=== PATIENT | female | born 1950 | race Caucasian/White ===

== ENCOUNTER → 2017-04-15 | Outpatient (CLI) | payer MEDICARE, OTHER ==
--- NOTE | 2017-04-15 11:58 | Diagnostic Imaging Report ---
Examination: DEXA scan. Indication: osteopenia Technique: Bone mineral density estimated based on dual energy radiography over the lumbar spine and femoral necks, was performed. Findings: The lumbar spine T-score is -3. This is 5% decreased density measurements compared to 03/26/2016. T score over the left femoral neck is -1.6 and on the right is -1.5. The 2% decreased density measurements compared to 03/26/16. IMPRESSION: Osteoporosis.. Dictated by: Dictated on workstation # [id number]
== END ==
LOC: RAD 08:34
PROVIDERS: ATTEND Nurse Practitioner Family
DX: Z12.31 Encounter for screening mammogram for malignant neoplasm of breast; M81.0 Age-related osteoporosis without current pathological fracture
CPT/HCPCS: 77080

== ENCOUNTER → 2018-08-17 | Outpatient (CLI) | payer MEDICARE, OTHER ==
[~2018-08-17] MED LIST: ATOR10TA66 PO; CALC-250 PO; CNC1KV IM; ESCI10TA55 PO; IBAN150T8 PO; TURM538C PO
--- NOTE | 2018-08-17 20:22 | HISTORY AND PHYSICAL ---
DATE OF SERVICE: COLONOSCOPY H AND P HISTORY OF PRESENT ILLNESS: The patient is a 68-year-old white female referred by Dr. Salas for screening colonoscopy and diagnostic EGD. The patient is deemed to be of higher than average risk as there is a family history for familial polyposis. She did have genetic studies done and was negative and there is a strong family history for colon cancer. Brother at the age of 49 with colon cancer, father succumbed to colon cancer at the age of 46. She has one sister who has had a colectomy due to polyposis and has a history of adenomatous duodenal polyps, but requiring frequent screening. She has one other sibling with no history of polyps. Her last colonoscopy was in 2009, at which time she does not believe any colonic polyps were removed. For the past 6 months, she has noted dysphagia predominantly to solids. It has been intermittent. She states at one point she did have issues with reflux, but has not been aware of any significant heartburn symptoms over the past 6 months. She denies weight loss, melena or bright red blood per rectum. She denies problems with night sweats. PAST SURGICAL HISTORY: Significant for lumpectomy on the right in 1996 for breast cancer. She has had a past D and C for benign reasons. PAST MEDICAL HISTORY: Breast cancer diagnosed in 1995. She has had a subsequent lymph node removal, did not reveal any evidence for cancer. She has a history of hyperlipidemia, for which she takes atorvastatin, osteoporosis on ibandronate and has history of pernicious anemia with requiring B12 injections. She is also on escitalopram presumably for depression. FAMILY HISTORY: As noted in the HPI. SOCIAL HISTORY: She is retired with no past drinking history and no significant alcohol intake history. REVIEW OF SYSTEMS: CONSTITUTIONAL: The patient has had some mild fatigue and weight gain with no chills or fever. CARDIOVASCULAR: The patient denies chest pain, palpitations or dyspnea. RESPIRATORY: The patient denies cough, chest congestion, pleuritic pain or dyspnea. GASTROINTESTINAL: As stated in the HPI. PHYSICAL EXAMINATION: GENERAL: Reveals a well-appearing slightly anxious white female in no acute distress, well kempt, otherwise normal affect. VITAL SIGNS: Blood pressure is 130/76, heart rate was 80 and regular, weight 154 pounds. HEENT: Unremarkable. Sclerae are nonicteric. Oral cavity reveals Mallampati class 2 oropharyngeal configuration. NECK: Revealed no JVD, adenopathy or bruits. CHEST: Clear to auscultation. CARDIOVASCULAR: Reveals a regular rate and rhythm without murmur, S3 or S4. ABDOMEN: Soft, supple without mass or organomegaly. No tenderness is noted. Bowel sounds are positive. EXTREMITIES: Reveal no cyanosis, clubbing or edema. ASSESSMENT: The patient is set up for screening colonoscopy with positive family history for familial polyposis, although she tested negative for the syndrome and has had no past history of enteric polyps. She is scheduled for 08/26. We will also perform a diagnostic EGD due to dysphagia predominantly to solids as noted above. Prep instructions were given Suprep kit and questions were answered. Electronic medical record was reviewed. The patient's evaluation, answering questions and review of her electronic medical record, 45 minutes of care time was spent by myself with another 15 minutes of staff time setting of the procedure and going over the prep instructions. I thank you for the referral of this pleasant lady. Job ID: [id number] DocumentID: [id number] Dictated Date: 08/17/2018 19:51:09 Threading Machine Tender Date: 08/17/2018 20:21:39 Dictated By: MATT ESPINOSA MD [facility]
--- NOTE | 2018-08-18 08:50 | Diagnostic Imaging Report ---
Indication: Routine screening. Comparison is made with prior mammogram from 04/15/2017 and 03/26/2016. 2-D and 3-D bilateral screening mammography was performed with CAD. Scattered fibroglandular densities are identified bilaterally. There are scattered benign calcifications in both breasts. Overall parenchymal pattern appears to be stable. No dominant mass or malignant-appearing microcalcifications are seen. The axillae are unremarkable. Impression: BI-RADS category 2 No mammographic features suspicious for malignancy are identified. ACR BI-RADS Category 2: Benign findings. Result letter will be mailed to the patient. Note: At least 10% of breast cancer is not imaged by mammography. Dictated by: Dictated on workstation # [id number]
== END ==
LOC: RAD 14:53
PROVIDERS: ATTEND Family Medicine
DX: Z12.31 Encounter for screening mammogram for malignant neoplasm of breast (principal)
CPT/HCPCS: 77067

== ENCOUNTER → 2019-08-29 | Outpatient (CLI) | payer MEDICARE, OTHER ==
[~2019-08-29] MED LIST changes: +IBAN150T21 PO; -IBAN150T8 PO
--- NOTE | 2019-08-29 14:07 | Diagnostic Imaging Report ---
INDICATION: Routine screening. Comparison is made with prior mammograms from 08/17/2018 and 04/15/2017. 2-D and 3-D bilateral screening mammography was performed. The current study was also evaluated with a Computer Aided Detection (CAD) system. 3-D tomosynthesis was also performed and reviewed. FINDINGS: Both breasts are heterogeneously dense, limiting the sensitivity of mammography. Scattered benign-appearing parenchymal and vascular calcifications are noted. No mass or malignant-appearing microcalcifications are seen. Axillae are unremarkable. IMPRESSION: No mammographic features suspicious for malignancy are identified. ACR BI-RADS Category 2: Benign findings. Result letter will be mailed to the patient. Note: At least 10% of breast cancer is not imaged by mammography. Dictated by: Dictated on workstation # [id number]
--- NOTE | 2019-08-29 14:26 | Diagnostic Imaging Report ---
INDICATION: Postmenopausal female. COMPARISON: 04/15/2017. FINDINGS: AP Spine L1-L2: [BMD (g/cm2): 0.902] [T-Score: -2.2] [Z-Score: -0.5] [BMD Previous: Not applicable] [BMD % Change: Not applicable] LT Hip Neck: [BMD (g/cm2): 0.807] [T-Score: -1.7] [Z-Score: 0.0] LT Hip Total: [BMD (g/cm2):0.841] [T-Score:-1.3] [Z-Score: 0.1] [BMD Previous: 0.806] [BMD % Change: 4.3] RT Hip Neck: [BMD (g/cm2):0.803] [T-Score:-1.7] [Z-Score:-0.1] RT Hip Total: [BMD (g/cm2):0.817] [T-score:-1.5] [Z-Score:-0.1] [BMD Previous:0.820] [BMD % Change:-0.4] *Indicates significant change from prior examination based on 95% confidence level. World Health Organization criteria for BMD interpretation classify patients as Normal (T-score at or above -1.0), Osteopenic (T-score between -1.0 and -2.5) or Osteoporotic (T-score at or below -2.5). LIMITATIONS AND MODIFICATION: There appears to be prior laminectomy at L3 and L4, invalidating measurements at those levels. The L1 and L2 levels demonstrate degenerative change and scoliotic curvature, which may affect the bone mineral density as well. FRACTURE RISK (FRAX SCORE): The ten year probability of (%): Major Osteoporotic Fracture: [10.4] Hip Fracture: [1.5] IMPRESSION: 1. Osteopenia (Low bone mass). 2. No statistically significant change in bone mineral density since prior examination. 3. Due to degenerative change and apparent postsurgical changes, the lumbar spine should not be included on future DEXA scans. 4. See below National Osteoporosis Foundation guidelines on when to potentially initiate pharmacologic therapy. Based on the National Osteoporosis Foundation Guidelines, pharmacologic treatment should be initiated in any of the following, unless clinical conditions suggest otherwise: * Any patient with prior fragility fracture of the hip or vertebrae. A spine fracture indicates 5X risk for subsequent spine fracture and 2X risk for subsequent hip fracture. * Osteoporosis (T-score <-2.5). * Postmenopausal women and men age 50 and older with low bone mass/osteopenia (T-score between -1.0 and -2.5) by DXA and 10-year major osteoporotic fracture greater than 20% or a 10-year probability of hip fracture greater than 3%. These fracture risks are supplied above in the FRAX score, if applicable. * Clinician judgement and/or patient preferences may indicate treatment for people with 10-year fracture probabilities above or below these levels. Dictated by: Dictated on workstation # [id number]
== END ==
LOC: RAD 12:17
PROVIDERS: ATTEND Family Medicine
DX: Z12.31 Encounter for screening mammogram for malignant neoplasm of breast (principal); Z13.820 Encounter for screening for osteoporosis; M85.80 Other specified disorders of bone density and structure, unspecified site; Z78.0 Asymptomatic menopausal state
CPT/HCPCS: 77067; 77080

== ENCOUNTER 2020-02-13 05:28 | Outpatient (RCR) | payer MEDICARE, OTHER ==
[~2020-02-13] VITALS: Ht 160 cm; Wt 64.5 kg
[~2020-02-13 05:28] MED LIST changes: +ATOR20TA66 PO
== END 2020-02-13 13:18 | disposition home or self-care (01) ==
LOC: PREOP 05:28
PROVIDERS: ATTEND Internal Medicine
DX: Z01.818 Encounter for other preprocedural examination (principal); Z01.812 Encounter for preprocedural laboratory examination; Z12.11 Encounter for screening for malignant neoplasm of colon; R13.10 Dysphagia, unspecified
CPT/HCPCS: 87635

== ENCOUNTER 2020-02-16 07:45 | Day surgery (SDC) | payer MEDICARE, OTHER ==
--- NOTE | 2020-02-05 07:14 | HISTORY AND PHYSICAL ---
DATE OF SERVICE: COLONOSCOPY HISTORY AND PHYSICAL HISTORY OF PRESENT ILLNESS: The patient is a 69-year-old white female referred for screening colonoscopy and diagnostic EGD. It has been at least 10 years since her last colonoscopy, at which time, she does not recall any history for polyps or diverticular disease. There is a strong family history for colon cancer due to familial polyposis. Her brother at the age of 49 and father succumbed at the age of 46. She had undergone genetic testing, which was negative. She also has one sister who is affected by the condition. Has one other sibling with no history for polyps like herself. She reports that she has been having intermittent dysphagia, predominantly to solids. She gets a knot like sensation. She has not had to regurgitate food, but feels like she does have to force food down, she points to the lower precordial area. She has noted no melena. Reports weight gain, not weight loss and difficulty keeping her weight down. She has had no bright red blood per rectum. PAST SURGICAL HISTORY: Significant for D and C in the distant past for benign reasons and lumpectomy in the right breast in 1996 for breast cancer. She had axillary lymph node removal and radiation therapy. PAST MEDICAL HISTORY: Other than breast cancer is pertinent for hyperlipidemia and osteoporosis for which she is on atorvastatin 20 mg daily and Boniva 150 mg monthly. Her only prescription medication other than some occasional hydroxyzine that she takes as needed for hives, [id number]. She is on Flonase nasal spray. FAMILY HISTORY: As noted in the HPI. SOCIAL HISTORY: The patient is retired with no past smoking history and no significant alcohol consumption. REVIEW OF SYSTEMS: CONSTITUTIONAL: She reports some weight gain, no weight loss, no night sweats, chills, fever or change in appetite. GASTROINTESTINAL: As noted in the HPI. CARDIOVASCULAR: She denies chest pain, orthopnea, PND, pedal edema or dyspnea on exertion. PULMONARY: She denies cough, wheezing and denies sore throat. PHYSICAL EXAMINATION: GENERAL: Reveals a white female appeared to be in no acute distress. VITAL SIGNS: Weight 142.4, blood pressure 130/80. HEENT: ____. Mallampati 1 pharyngeal configuration. Oropharynx clear. CHEST: Clear to auscultation. CARDIOVASCULAR: Revealed a regular rate and rhythm without murmur, S3 or S4. ABDOMEN: Soft, supple without mass, organomegaly or tenderness. EXTREMITIES: Reveal no cyanosis, clubbing or edema. ASSESSMENT: The patient was set up for diagnostic EGD and screening colonoscopy to be done via anesthesia as the patient's last colonoscopy apparently was incomplete 10 years ago due to increase sensitivity. She has had trouble with nausea with bowel preps in the past, so we will give Zofran and try MiraLax prep. I thank you for the referral of this pleasant lady. Job ID: [id number] DocumentID: [id number] Dictated Date: 01/24/2020 16:54:41 Core Inspector Date: 01/24/2020 17:30:42 Dictated By: MATT ESPINOSA MD MTDD
[~2020-02-16] VITALS: Ht 160 cm; Wt 64.5 kg
[2020-02-16] MEDS ORDERED: ATROPINE INJ 0.4 MG/ML SDV IV ONE (07:46)
[2020-02-16] MEDS ORDERED: LACTATED RINGERS 1,000 ML IV STA (08:02)
[2020-02-16] MEDS ORDERED: LACTATED RINGERS 1,000 ML IV ONE (08:07)
[2020-02-16 08:10] VITALS: BP 132/76
[2020-02-16] MEDS ORDERED: HURRICAINE EXT TUBE (BENZOCAINE) XX PRN (08:15)
[2020-02-16] MEDS ORDERED: LIDOCAINE JELLY 2% 6 ML SYRINGE MM PRN (08:15)
--- NOTE | 2020-02-16 08:15 | Pre-Op Note & Conscious Sedat ---
Pre-Operative Progress Note H&P Reviewed The H&P was reviewed, patient examined and no changes noted. Date H&P Reviewed: Feb 16, 2020 Time H&P Reviewed: 08:15 Conscious Sedation Pre-Proced ASA Score 2 For ASA 3 and 4: Consider anesthesia and medical clearance. Also, for patients with a history of failed moderate sedation consider anesthesia. Airway Lungs Heart ASA score ASA 1: a normal healthy patient ASA 2: a patient with a mild systemic disease (mid diabetes, controlled hypertension, obesity ASA 3: a patient with a severe systemic disease that limits activity (angina, COPD, prior Myocardial infarction) ASA 4: a patient with an incapacitating disease that is a constant threat to life (CHF, renal failure) ASA 5: a moribund patient not expected to survive 24 hrs. (ruptured aneurysm) ASA 6: a declared brain- patient whose organs are being harvested. For emergent operations, add the letter E after the classification Mallampati Classification Grade 1 Sedation Plan Analgesia, Amnesia, Plan communicated to team members, Discussed options with patient/fam, Discussed risks with patient/fam The patient is an appropriate candidate to undergo the planned procedure, sedation, and anesthesia. The patient immediately re-assessed prior to indication. MATT ESPINOSA MD Feb 16, 2020 08:15
[2020-02-16] MEDS ORDERED: MIDAZOLAM 2 MG/2 ML (VERSED) VIAL ONE (08:38)
[2020-02-16] MEDS ORDERED: PROPOFOL INJECTION 50 ML IV ONE (08:38)
[2020-02-16] MEDS ORDERED: LIDOCAINE JELLY 2% 6 ML SYRINGE ONE (08:44)
[2020-02-16 09:20] VITALS: BP 117/36
[2020-02-16 09:25] VITALS: BP 114/63
[2020-02-16 09:30] VITALS: BP 114/63
[2020-02-16 09:55] VITALS: BP 114/63
--- NOTE | 2020-02-16 10:22 | Anesthesia-General Post-Op ---
MAC Patient Condition Mental Status/LOC: Same as Preop Cardiovascular: Satisfactory Nausea/Vomiting: Absent Respiratory: Satisfactory Pain: Controlled Complications: Absent Post Op Complications Complications None Follow Up Care/Instructions Patient Instructions None needed. Anesthesiology Discharge Order Discharge Order Patient is doing well, no complaints, stable vital signs, no apparent adverse anesthesia problems. No complications reported per nursing. BENITO HILL CRNA Feb 16, 2020 10:22
--- NOTE | 2020-02-16 20:15 | OPERATIVE REPORT ---
DATE OF SERVICE: PANENDOSCOPY SUMMARY INDICATION FOR THE PROCEDURE: Screening colonoscopy and EGD is performed for evaluation of dysphagia. DESCRIPTION OF PROCEDURE: The patient was placed in the left lateral decubitus position. Prior to doing colonoscopy, digital rectal evaluation was performed. Anal sphincter tone was normal and the perianal reflexes intact. No abnormalities were noted on digital inspection of anal canal or distal rectal vault. The colonoscope was then inserted into the rectum and under direct visualization advanced to cecum. The cecum was identified by identification of ileocecal valve and cecal strap. Photographic documentation was obtained. Quality of prep was good. FINDINGS: No evidence for internal or external hemorrhoids and the rectum was unremarkable as was the sigmoid colon, descending colon, splenic flexure, transverse colon and hepatic flexure. A diminutive 3 mm sessile polyp was noted in the proximal ascending colon. Photograph was obtained. The polyp was biopsied and ablated with no significant blood loss. The cecum of the colon and ileocecal valve were unremarkable. ASSESSMENT: One diminutive polyp was removed via hot forceps from the proximal ascending colon. This was otherwise unremarkable colonoscopy considering the patient's age and the fact that this is her second unremarkable colonoscopy. She had her second colonoscopy, the first revealing no reported problems with no family history for colon cancer. It is debatable as to whether or not future screening colonoscopy should be recommended. We then proceeded with EGD evaluation. The upper endoscope was inserted in the oral cavity. Under direct visualization, esophagus was intubated. The endoscope was passed down the esophagus, stomach and second portion of the duodenum. Careful inspection was made as the endoscope was withdrawn. FINDINGS: There appeared to be lipomatous hypertrophy of the epiglottis. Photograph was obtained with no other abnormalities being noted in the posterior pharynx or involving the arytenoid aperture, true or false vocal folds. The proximal and mid esophagus were unremarkable. There was some mild erythema noted at the Z line with a small sliding hiatal hernia present. No evidence for stricture formation or extrinsic compression was noted. Biopsy was obtained and submitted for histopathology. The cardia, fundus and antrum of the stomach were unremarkable as was the pylorus, pyloric channel, duodenal bulb and second portion of the duodenum. ASSESSMENT: A small hiatal hernia is present without evidence for erosive esophagitis and no evidence for obstruction. Discussed the importance of careful attention to mastication and drinking more water with her meals. She admits to eating too fast. She was reassured by today's findings. I thank you for the referral of this pleasant lady. Job ID: [id number] DocumentID: [id number] Dictated Date: 02/16/2020 11:41:21 Resource Teacher Date: 02/16/2020 20:14:07 Dictated By: MATT ESPINOSA MD MTDD
== END 2020-02-16 09:55 | disposition home or self-care (01) ==
LOC: ENDO 07:45
PROVIDERS: ATTEND Internal Medicine
DX: Z12.11 Encounter for screening for malignant neoplasm of colon (principal); K63.5 Polyp of colon; K22.70 Barrett's esophagus without dysplasia; K44.9 Diaphragmatic hernia without obstruction or gangrene; Z80.0 Family history of malignant neoplasm of digestive organs; E78.5 Hyperlipidemia, unspecified; M81.0 Age-related osteoporosis without current pathological fracture; M06.9 Rheumatoid arthritis, unspecified; K21.9 Gastro-esophageal reflux disease without esophagitis; Z85.3 Personal history of malignant neoplasm of breast; Z92.3 Personal history of irradiation; Z79.899 Other long term (current) drug therapy

== ENCOUNTER 2021-08-07 05:29 | Outpatient (RCR) | payer MEDICARE, OTHER ==
[~2021-08-07] VITALS: Ht 160 cm; Wt 67.2 kg
[~2021-08-07 05:29] MED LIST changes: +ESCI-2 PO; -ESCI10TA55 PO; +L.AC1CAP6 PO; +ZINC220T3 PO
== END 2021-08-07 09:08 | disposition home or self-care (01) ==
LOC: PREOP 05:29
PROVIDERS: ATTEND Internal Medicine
DX: Z01.818 Encounter for other preprocedural examination (principal)

== ENCOUNTER 2021-08-08 07:59 | Day surgery (SDC) | payer MEDICARE, OTHER ==
--- NOTE | 2021-08-02 11:35 | HISTORY AND PHYSICAL ---
DATE OF SERVICE: EGD HISTORY AND PHYSICAL HISTORY: The patient is a 71-year-old white female, referred by Dr. Salas for repeat EGD evaluation due to history of short segment Reyez's. She has had no evidence for dysplasia, originally diagnosed in 2019. She is not currently on any acid blocking therapy. Denying dysphagia, change in weight or any significant heartburn symptoms, rare antacid usage. She reports she has been feeling well and thought her weight to be stable. PAST SURGICAL HISTORY: Significant for lumpectomy on the right breast in 1996 for breast cancer with a D and C many years ago for benign reasons. PAST MEDICAL HISTORY: Other than her breast cancer is significant for reported pernicious anemia requiring B12 injections, hyperlipidemia with no known history of hypertension, for which she is on atorvastatin and bisphosphonate therapy for underlying osteoporosis with no history of fragility fracture. FAMILY HISTORY: She is not aware of any family history for gastric or esophageal cancer. Had a brother at the age of 49 with colon cancer and father succumbed to colon cancer at the age of 46. Her last colonoscopy in 2019 revealed no evidence for neoplasia. PHYSICAL EXAMINATION: GENERAL: Reveals a white female, appeared to be in no acute distress. VITAL SIGNS: Weight 146 pounds, is up 3.6 pounds from last office weight year and a half ago. HEENT: Unremarkable. Sclerae nonicteric. CHEST: Clear. CARDIOVASCULAR: Reveals a regular rate and rhythm without murmur, S3 or S4. ABDOMEN: Soft, supple without mass, organomegaly or tenderness. EXTREMITIES: Reveal no cyanosis, clubbing or edema. ASSESSMENT AND PLAN: For surveillance due to history of short segment Reyez's, the patient is undergoing EGD evaluation. Instructions were given and questions answered. I thank you for the referral of this pleasant lady. Job ID: [id number] DocumentID: [id number] Dictated Date: 07/31/2021 16:08:35 Senior Programmer Date: 07/31/2021 16:55:06 Dictated By: MATT ESPINOSA MD
[~2021-08-08] VITALS: Ht 160 cm; Wt 67.2 kg
[2021-08-08] MEDS ORDERED: LACTATED RINGERS 1,000 ML IV ONE (08:07)
[2021-08-08] MEDS ORDERED: LACTATED RINGERS 1,000 ML IV STA (08:10)
[2021-08-08] MEDS ORDERED: HURRICAINE EXT TUBE (BENZOCAINE) XX PRN (08:15)
[2021-08-08] MEDS ORDERED: LIDOCAINE JELLY 2% 6 ML SYRINGE MM PRN (08:15)
[2021-08-08 08:20] VITALS: BP 125/66
--- NOTE | 2021-08-08 08:48 | Pre-Op Note & Conscious Sedat ---
Pre-Operative Progress Note H&P Reviewed The H&P was reviewed, patient examined and no changes noted. Date H&P Reviewed: Aug 08, 2021 Time H&P Reviewed: 08:47 Conscious Sedation Pre-Proced ASA Score 2 For ASA 3 and 4: Consider anesthesia and medical clearance. Also, for patients with a history of failed moderate sedation consider anesthesia. Airway Lungs Heart ASA score ASA 1: a normal healthy patient ASA 2: a patient with a mild systemic disease (mid diabetes, controlled hypertension, obesity ASA 3: a patient with a severe systemic disease that limits activity (angina, COPD, prior Myocardial infarction) ASA 4: a patient with an incapacitating disease that is a constant threat to life (CHF, renal failure) ASA 5: a moribund patient not expected to survive 24 hrs. (ruptured aneurysm) ASA 6: a declared brain- patient whose organs are being harvested. For emergent operations, add the letter E after the classification Mallampati Classification Grade 2 Sedation Plan Analgesia, Amnesia, Plan communicated to team members, Discussed options with patient/fam, Discussed risks with patient/fam The patient is an appropriate candidate to undergo the planned procedure, sedation, and anesthesia. The patient immediately re-assessed prior to indication. MATT ESPINOSA MD Aug 08, 2021 08:47
[2021-08-08] MEDS ORDERED: proPOfol 200 MG/20 ML (DIPRIVAN) VIAL IV ONE (09:23)
[2021-08-08 09:44] VITALS: BP 120/57
[2021-08-08 09:49] VITALS: BP 109/58
[2021-08-08 09:55] VITALS: BP 115/58
[2021-08-08 10:30] VITALS: BP 115/58
--- NOTE | 2021-08-08 11:06 | Anesthesia-General Post-Op ---
MAC Patient Condition Mental Status/LOC: Same as Preop Cardiovascular: Satisfactory Nausea/Vomiting: Absent Respiratory: Satisfactory Pain: Controlled Complications: Absent Post Op Complications Complications None Follow Up Care/Instructions Patient Instructions None needed. Anesthesiology Discharge Order Discharge Order Patient is doing well, no complaints, stable vital signs, no apparent adverse anesthesia problems. No complications reported per nursing. NEGRA MC CRNA Aug 08, 2021 11:06
--- NOTE | 2021-08-08 14:18 | OPERATIVE REPORT ---
DATE OF SERVICE: EGD SUMMARY INDICATION FOR THE PROCEDURE: History of Reyez's, surveillance EGD. DESCRIPTION OF PROCEDURE: The patient was placed in the left lateral decubitus position. The endoscope was inserted into the oral cavity and under direct visualization, the esophagus was intubated. Endoscope was passed down the esophagus into the stomach and second portion of the duodenum. Careful inspection was made as the endoscope was withdrawn. FINDINGS: The posterior pharynx, epiglottis, arytenoid aperture, and true and false vocal folds were unremarkable on visual inspection. The proximal, mid and distal esophagus were unremarkable, say for likely 2 cm segment of Reyez's change in the distal esophagus without evidence for nodularity, ulceration or erythema. Four quadrant biopsies were obtained and submitted for histopathology. A small 1 cm to 2 cm hiatal hernia was present. The cardia, fundus, antrum, pylorus, pyloric channel, duodenal bulb and second portion of the duodenum were unremarkable with no evidence of peptic ulcer disease. ASSESSMENT: Findings are suggestive of short segment Reyez's without evidence for erosive esophagitis or visual evidence for neoplasia. Four quadrant biopsies obtained. As long as there is no evidence for high-grade dysplasia, we will likely be advocating repeat surveillance EGD in three years. I thank you for the referral of this pleasant lady. Job ID: [id number] DocumentID: [id number] Dictated Date: 08/08/2021 09:41:44 Inspector General Date: 08/08/2021 14:17:39 Dictated By: MATT ESPINOSA MD
== END 2021-08-08 10:30 | disposition home or self-care (01) ==
LOC: ENDO 07:59
PROVIDERS: ATTEND Internal Medicine
DX: K22.70 Barrett's esophagus without dysplasia (principal); K31.A0 Gastric intestinal metaplasia, unspecified; K44.9 Diaphragmatic hernia without obstruction or gangrene; E78.5 Hyperlipidemia, unspecified; M81.0 Age-related osteoporosis without current pathological fracture; K20.90 Esophagitis, unspecified without bleeding; Z79.899 Other long term (current) drug therapy; Z80.0 Family history of malignant neoplasm of digestive organs; Z85.3 Personal history of malignant neoplasm of breast

== ENCOUNTER → 2021-09-02 | Outpatient (CLI) | payer MEDICARE, OTHER ==
--- NOTE | 2021-09-02 13:45 | Diagnostic Imaging Report ---
INDICATION: Osteopenia. COMPARISON: 08/29/2019 FINDINGS: AP Spine L1-L4: [BMD (g/cm2): 0.906] [T-Score: -2.4] [Z-Score: -0.9] [BMD Previous: 0.871] [BMD % Change: 4.0] LT Hip Neck: [BMD (g/cm2): 0.795] [T-Score: -1.7] [Z-Score: -0.1] LT Hip Total: [BMD (g/cm2):0.842] [T-Score:-1.3] [Z-Score: 0.1] [BMD Previous: 0.841] [BMD % Change: 0.1] RT Hip Neck: [BMD (g/cm2):0.819] [T-Score:-1.6] [Z-Score:0.1] RT Hip Total: [BMD (g/cm2):0.829] [T-score:-1.4] [Z-Score:0.0] [BMD Previous:0.817] [BMD % Change:1.5] *Indicates significant change from prior examination based on 95% confidence level. World Health Organization criteria for BMD interpretation classify patients as Normal (T-score at or above -1.0), Osteopenic (T-score between -1.0 and -2.5) or Osteoporotic (T-score at or below -2.5). LIMITATIONS AND MODIFICATION: None. FRACTURE RISK (FRAX SCORE): The ten year probability of (%): Major Osteoporotic Fracture: [10.8] Hip Fracture: [1.9] IMPRESSION: 1. Osteopenia (Low bone mass). 2. No significant change in bone mineral density since prior examination. 3. See below National Osteoporosis Foundation guidelines on when to potentially initiate pharmacologic therapy. Based on the National Osteoporosis Foundation Guidelines, pharmacologic treatment should be initiated in any of the following, unless clinical conditions suggest otherwise: * Any patient with prior fragility fracture of the hip or vertebrae. A spine fracture indicates 5X risk for subsequent spine fracture and 2X risk for subsequent hip fracture. * Osteoporosis (T-score <-2.5). * Postmenopausal women and men age 50 and older with low bone mass/osteopenia (T-score between -1.0 and -2.5) by DXA and 10-year major osteoporotic fracture greater than 20% or a 10-year probability of hip fracture greater than 3%. These fracture risks are supplied above in the FRAX score, if applicable. * Clinician judgement and/or patient preferences may indicate treatment for people with 10-year fracture probabilities above or below these levels. Dictated by: Dictated on workstation # [id number]
--- NOTE | 2021-09-02 18:00 | Diagnostic Imaging Report ---
INDICATION: Routine screening. COMPARISON is made with prior mammograms from 11/13/2019 and 08/17/2018. 2-D and 3-D bilateral screening mammography was performed with CAD. Scattered fibroglandular densities are identified bilaterally. There are scattered benign-appearing calcifications bilaterally. No mass or malignant-appearing microcalcifications are seen. Axillae are unremarkable. IMPRESSION: BI-RADS Category 2 No mammographic features suspicious for malignancy are identified. Dictated by: Dictated on workstation # [id number]
== END ==
LOC: RAD 12:32
PROVIDERS: ATTEND Nurse Practitioner Family
DX: Z12.31 Encounter for screening mammogram for malignant neoplasm of breast (principal); M85.80 Other specified disorders of bone density and structure, unspecified site; Z78.0 Asymptomatic menopausal state
CPT/HCPCS: 77063; 77067; 77080